=== PATIENT | female | born 1950 | race Caucasian/White ===

== ENCOUNTER 2020-06-07 07:22 | Day surgery (SDC) | payer MEDICARE, OTHER ==
[~2020-06-07] VITALS: Ht 162.6 cm; Wt 77.1 kg
[~2020-06-07 07:22] MED LIST: BAYER CHEWABLE81 MG PO; BENTYL 20 MG TA20 MG PO; CALCIUM 500 +1 EAC3 PO; DIOVAN160 MG PO; ESTRACE1 MG PO; MAGNESIUM OXID250 MG PO; NEXIUM40 MG PO; NORVASC10 MG PO; POTASSIUM CHLO10 ME1 PO; SYNTHROID125 MCG PO; TRIAMTERENE-HC1 EAC3 PO; VITAMIN B-12500 MCG PO; VITAMIN D-32000 UNIT PO
[2020-06-07 07:55] LABS: BASOPHILS 0.6 % (0-2); EOSINOPHILS 3.4 % (0-7); HEMATOCRIT 41.1 % (36.0-48.0); HEMOGLOBIN 13.8 g/dL (12-16); IMMATURE GRANULOCYTES 0.5 % (0-5); LYMPHOCYTE ABS# 1.95 10x3/uL (1.18-3.74); LYMPHOCYTES 31.6 % (15-50); MCH 31.4 pg (26.0-34.0); MCHC 33.6 g/dL (31.0-37.0); MCV 93.4 fL (80.0-100.0); MEAN PLATELET VOLUME 9.6 fL (7.4-10.4); MONOCYTES 11.2 % (2-11); NEUTROPHIL ABS# 3.26 10x3/uL (1.56-6.13); NEUTROPHILS 52.7 % (40-80); PLATELET COUNT 266 10x3/uL (130-400); RDW 12.7 % (11.5-14.5); WBC 6.2 10x3/uL (4.8-10.8)
[2020-06-07 08:00] LABS: ANION GAP 11.9 mmol/L (8-16); CALCIUM 8.7 mg/dL (8.5-10.1); CARBON DIOXIDE 28.1 mmol/L (21.0-32.0); CREATININE - SERUM 0.9 mg/dL (0.6-1.3)
[2020-06-07 10:09] VITALS: BP 126/53; Ht 162.6 cm; Wt 77.1 kg
--- NOTE | 2020-06-07 15:15 | NUR ---
[employer] NEUROSTIMULATOR PLACED BY DR. ROMERO AT THIS TIME . REFERENCE NO: [id number] SERIAL NO: [id number] USE BY: 02/18/2022 INFORMATION PROVIDED BY GARTH MARIN LEAD IMPLANT KIT: LOT NO: [id number] USE BY: 12/21/2021 NOTED: JONES BRADY
--- NOTE | 2020-06-07 16:15 | NUR ---
PRASAD WITH [employer] AT BEDSIDE TO DO POST OP TEACHING WITH PT AND DAUGHTER.
--- NOTE | 2020-06-07 17:10 | NUR ---
DISCHARGE INSTRUCTIONS GIVEN TO PT AND DAUGHTER, BOTH VOICED UNDERSTANDING.
--- NOTE | 2020-06-07 17:43 | NUR ---
PT AMBULATED TO BATHROOM AND ABLE TO VOID. IV DC'D BY JONES MCCARTNEY WITH CATH TIP INTACT. PT GETTING DRESSED WITH ASSISTANCE FROM DAUGHTER STAN.
--- NOTE | 2020-06-07 17:54 | NUR ---
DISCHARGED VIA W/C, ACCOMPANIED BY JONES MCCLAIN, TO [facility] WITH DAUGHTER STAN LIPSCOMB. ALL BELONGINGS WITH PT/DAUGHTER.
== END 2020-06-07 17:54 | disposition home or self-care (01) ==
LOC: D.OPS 07:22
PROVIDERS: Anesthesiology; ATTEND Obstetrics & Gynecology Maternal & Fetal Medicine
DX: T85.191A Other mechanical complication of implanted electronic neurostimulator of peripheral nerve electrode (lead), initial encounter (principal); N39.3 Stress incontinence (female) (male); N39.41 Urge incontinence; R15.9 Full incontinence of feces